=== PATIENT | female | born 1945 | race African-American/Black ===

== ENCOUNTER → 2017-03-29 | Outpatient (CLI) | payer OTHER | LOC: FIMAGING 09:24 | PROVIDERS: ATTEND Family Medicine | DX: M85.80 Other specified disorders of bone density and structure, unspecified site (principal); E55.9 Vitamin D deficiency, unspecified; I10 Essential (primary) hypertension; M25.50 Pain in unspecified joint; E78.5 Hyperlipidemia, unspecified ==

== ENCOUNTER 2017-04-13 10:12 | Day surgery (SDC) | payer OTHER ==
[2017-04-13] MEDS ORDERED: LIDOCAINE 1% 2 ML INJ ONE (10:41)
--- NOTE | 2017-04-13 10:52 | PDGENHP ---
History & Physical Chief Complaint: + Cologard Relevant Physical Exam: GEN: NAD. Cardiac: RRR. Lungs: CTA B. Abd: Soft, nt, nd
[2017-04-13] MEDS ORDERED: LR 1,000 ML IV SCH (11:00)
--- NOTE | 2017-04-13 11:02 | PDANEPAE ---
ANE History of Present Illness patient is here for colonoscopy ANE Past Medical History - Cardiovascular History Hx Hypertension: Yes Hx Arrhythmias: No Hx Chest Pain: No Hx Coronary Artery / Peripheral Vascular Disease: No Hx CHF / Valvular Disease: No Hx Palpitations: No Cardiovascular History Comment: hyperlipidemia - Pulmonary History Hx COPD: No Hx Asthma/Reactive Airway Disease: No Hx Recent Upper Respiratory Infection: No Hx Oxygen in Use at Home: No Hx Sleep Apnea: No Sleep Apnea Screening Result - Last Documented: Negative - Neurologic History Hx Cerebrovascular Accident: No Hx Seizures: No Hx Dementia: No - Endocrine History Hx Diabetes: No Obesity: moderate - Renal History Hx Renal Disorders: No - Liver History Hx Hepatic Disorders: No - Neurological & Psychiatric Hx Hx Neurological and Psychiatric Disorders: No - Cancer History Hx Cancer: No - Congenital Disorder History Hx Congenital Disorders: No - GI History GERD: no Hx Gastrointestinal Disorders: No - Other Health History Other Health History: wears glasses. oseoarthritis - Chronic Pain History Chronic Pain: No - Surgical History Prior Surgeries: x2 1970, 1975. left carpal tunnel release 2010. inguinal hernia repair 1970. tonsillectomy 1955 ANE Review of Systems - Exercise capacity Exercise capacity: >=4 METS METS (RN): 4 METS ANE Patient History - Allergies Allergies/Adverse Reactions: No Known Allergies Allergy (Verified 03/16/17 14:07) - Home Medications Home medications: home medication list seen and reviewed Home Medications: Losartan/Hydrochlorothiazide 03/16/17 [Last Taken Unknown] - NPO status NPO Status: no food or drink >8 hours - Anes Hx Anes Hx: no prior problems - Smoking Hx Smoking Status: Never smoked - Family Anes Hx Family Hx Anesthesia Complications: none ANE Labs/Vital Signs - Vital Signs Height: 163.83 cm Weight: 83.461 kg ANE Physical Exam - Airway Neck exam: FROM Mallampati Score: Class 2 Mouth exam: normal dental/mouth exam - Pulmonary Pulmonary: no respiratory distress - Cardiovascular Cardiovascular: regular rate and rhythym - ASA Status ASA Status: II ANE Anesthesia Plan Anesthesia Plan: GA with mask (discussed risks and benefits of GA with propofol. Pt agrees and wishes to continue. )
[2017-04-13] MEDS ORDERED: PROPOFOL/EMULSION 500 MG/50 ML BOTTLE IV ONE (11:04)
[2017-04-13] MEDS ORDERED: NALOXONE HCL 0.4 MG/ML INJ IVP PRN (11:38)
[2017-04-13] MEDS ORDERED: ONDANSETRON 4 MG/2 ML VIAL IVP PRN (11:38)
[2017-04-13] MEDS ORDERED: PROPOFOL 200 MG/20 ML VIAL ONE (11:49)
--- NOTE | 2017-04-13 11:56 | POSTOPPROG ---
Post Op Note Date of Operation: 04/13/17 Surgeon: Melvin Villalobos Pre-op Diagnosis: + Cologard Post-op Diagnosis: Colon polyps Indication: + Cologard Procedure: Colonoscopy with bx, snare, injection Findings: 4 polyps s/p removal. Largest in rectum piecemeal 12mm. Inf/Abcess present in the surg proc area at time of surgery?: No
--- NOTE | 2017-04-13 13:18 | GOP ---
[f rep st] OPERATIVE REPORT DATE OF OPERATION: SURGEON: Melvin Villalobos MD ANESTHESIA: Monitored anesthesia care. PREOPERATIVE DIAGNOSIS: Positive Cologuard. POSTOPERATIVE DIAGNOSIS: Colon polyps, status post removal. PROCEDURE PERFORMED: 1. Colonoscopy with biopsy. 2. Colonoscopy with snare. 3. Colonoscopy with injection. FINDINGS: ESTIMATED BLOOD LOSS: Minimal. INDICATIONS: The patient is a 71-year-old female who had a positive Cologuard test. She is here fo r a colonoscopy for further evaluation. The risks and benefits of the procedure were discussed with the patient. Consent obtained. Risks include, but not limited to, bleeding, perforation, and oz tion. The patient is ASA class 2. DESCRIPTION OF PROCEDURE: The adult colonoscope was advanced to the cecum. Two 3 mm polyps were fo und in the cecum, which were removed using cold snare polypectomy and retrieved for pathology. The ileocecal valve, appendiceal orifice, ascending colon, hepatic flexure, transverse colon, splenic fl exure appeared normal. A 2 mm polyp was noted in the descending colon and was removed using cold bi opsy forceps, sent off for pathology. The remaining descending colon and sigmoid colon were normal. In the rectum, there was a 12 mm flat polyp, which was removed using a large hexagonal snare in pi ecemeal fashion. The polyp was retrieved for pathology. A single hemoclip was placed over the site to close the defect. Finally, a tattoo was placed at this site using a Dennis Damian injection needle to eunice the site of piecemeal polypectomy. Retroflexed views of the rectum were normal. COMPLICATIONS: None. BIOPSIES TAKEN: Yes. IMPRESSION: Four colon polyps status post removal. Large polyps removed in piecemeal fashion. RECOMMENDATIONS: 1. Discharge to home with escort. 2. Advance diet as tolerated. 3. Repeat colonoscopy in 6 months for surveillance purposes given piecemeal polypectomy. Thank you for allowing me to participate in the care of your patient. Please do not hesitate to shavonne l with questions. /[id number]/MODL
--- NOTE | 2017-04-13 13:28 | POSTANESTH ---
Post Anesthetic Evaluation Cardiovascular Status: Normal, Stable Respiratory Status: Normal, Stable Level of Consciousness/Mental Status: Mildly Sleepy, Arousable Pain Control: Adequate, Prn Tx Ordered Nausea/Vomiting Control: Adequate, Prn Tx Ordered Complications Possibly Related to Anesthesia: None Noted
[2017-04-13 13:30] VITALS: BP 156/58; PULSE 41; RESP 16; TEMP 97.9; O2SAT 98
== END 2017-04-13 13:15 | disposition home or self-care (01) ==
LOC: FSGY 10:12
PROVIDERS: ATTEND Internal Medicine Gastroenterology
PROC: 0DBH8ZX Excision of Cecum, Via Natural or Artificial Opening Endoscopic, Diagnostic (ICD-10-PCS; principal; 2017-04-13 11:30)
PROC: 0DBE8ZZ Excision of Large Intestine, Via Natural or Artificial Opening Endoscopic (ICD-10-PCS; principal; 2017-04-13 11:30)
PROC: 0DBP8ZX Excision of Rectum, Via Natural or Artificial Opening Endoscopic, Diagnostic (ICD-10-PCS; principal; 2017-04-13 11:30)
DX: Z12.11 Encounter for screening for malignant neoplasm of colon (principal); D12.0 Benign neoplasm of cecum; D12.4 Benign neoplasm of descending colon; D12.8 Benign neoplasm of rectum
CPT/HCPCS: J2704

== ENCOUNTER → 2017-08-03 | Outpatient (CLI) | payer OTHER | LOC: FIMAGING 14:44 | PROVIDERS: ATTEND Family Medicine | DX: N63.10 Unspecified lump in the right breast, unspecified quadrant (principal) | CPT/HCPCS: 76641; G0204 ==

== ENCOUNTER → 2017-08-11 | Outpatient (CLI) | payer OTHER ==
[~2017-08-11] MED LIST: BUPIVACAINE 0.5% 10 ML SDV ONE; LIDOCAINE 1% 300 MG/30 ML SDV ONE; THROMBIN (BOVINE) 5,000 UNIT VIAL TP ONE
[2017-08-17 15:19] LABS: FIXED IN 10%FORM 6-72HR Yes; FIXED IN 10%FORM W/IN 1 HR Yes
== END ==
LOC: FIMAGING 07:13
PROVIDERS: ATTEND Family Medicine
DX: C50.911 Malignant neoplasm of unspecified site of right female breast (principal)

== ENCOUNTER → 2017-09-21 | Outpatient (CLI) | payer OTHER ==
[~2017-09-21] MED LIST changes: -BUPIVACAINE 0.5% 10 ML SDV ONE; +GADOBUTROL 10 ML VIAL IVP ONE; -LIDOCAINE 1% 300 MG/30 ML SDV ONE; -THROMBIN (BOVINE) 5,000 UNIT VIAL TP ONE
== END ==
LOC: FIMAGING 08:07
PROVIDERS: ATTEND Surgery
DX: C50.411 Malignant neoplasm of upper-outer quadrant of right female breast (principal); R59.9 Enlarged lymph nodes, unspecified; R92.8 Other abnormal and inconclusive findings on diagnostic imaging of breast
CPT/HCPCS: 0159T; A9585; C8908

== ENCOUNTER 2017-12-06 12:09 | Day surgery (SDC) | payer OTHER ==
[2017-12-06] MEDS ORDERED: DIAZEPAM 5 MG TAB PO ONE (12:12)
[2017-12-06] MEDS ORDERED: NS 1,000 ML IV ONE (12:12)
[2017-12-06] MEDS ORDERED: diphenhydrAMINE 25 MG CAP PO ONE ×2 (12:12→12:49)
[2017-12-06] MEDS ORDERED: ASPIRIN EC 325 MG TAB PO ONE ×2 (12:12→12:49)
[2017-12-06] MEDS ORDERED: FAMOTIDINE 20 MG TAB PO ONE (12:12)
--- NOTE | 2017-12-06 12:44 | CPEKG ---
Heart Rate: 74 RR Interval: 811 P-R Interval: 176 QRSD Interval: 100 QT Interval: 408 QTC Interval: 453 P [place]: 28 QRS [place]: -58 T Wave [place]: 62 EKG Severity - ABNORMAL ECG - EKG Impression: SINUS RHYTHM EKG Impression: LEFT ANTERIOR FASCICULAR BLOCK EKG Impression: LEFT VENTRICULAR HYPERTROPHY EKG Impression: CONSIDER ANTERIOR INFARCT EKG Impression: SIMILAR TO 2010 ECG Electronically Signed By: Dary Mercado 06-Dec-2017 19:27:27
[2017-12-06] MEDS ORDERED: FAMOTIDINE 20 MG TAB ONE (12:49)
[2017-12-06 12:56] LABS: PLATELET COUNT 291 10^3/uL (150-400)
[2017-12-06 13:11] LABS: INR 0.96 (0.83-1.16)
[2017-12-06] MEDS ORDERED: LIDOCAINE 1% 300 MG/30 ML SDV ONE (13:25)
[2017-12-06] MEDS ORDERED: fentaNYL 100 MCG/2 ML INJ ONE (13:25)
[2017-12-06] MEDS ORDERED: IOPAMIDOL (ISOVUE-370) 150 ML BTL IV ONE (13:26)
[2017-12-06] MEDS ORDERED: VERAPAMIL 5 MG/2 ML VIAL ONE (13:37)
[2017-12-06] MEDS ORDERED: MIDAZOLAM 2 MG/2 ML VIAL ONE (13:37)
[2017-12-06] MEDS ORDERED: HEPARIN 10,000 UNIT/10 ML MDV (1,000 UNIT/ML) ONE (13:41)
--- NOTE | 2017-12-06 13:47 | PDPROPOC ---
Sedation Plan of Care Sedation Plan of Care: vital signs stable, mental status noted, patient educated of risks, benefits, alternatives, patient can tolerate sedation ASA Classification: ASA 1 Planned drugs: fentanyl, midazolam Mallampati Score: Class 1 Mallampati Reference Image: Patient passed 3-3-2 rule?: Yes
--- NOTE | 2017-12-06 13:47 | PDHPUP ---
History & Physical Update H&P update statement: This history and physical update is based on an assessment of the patient which was completed after admission or registration (within 24 hours), but prior to the surgery/procedure. H&P update: H&P reviewed & patient examined, no change in patient's condition since H&P completed
--- NOTE | 2017-12-06 14:47 | PDDXCAT ---
Diagnostic Cath Note - . Date: 12/06/17 Skip Miner: White Indication: other ([place] Cardiovascular Society class 2 anginal equivalent with dyspnea on exertion and an intermediate risk stress test. Preoperative assessment for planned bilateral mastectomy.) - Procedure Access: right wrist Procedure: left heart catheterization, coronary angiography, left ventriculogram - Materials Left Heart Cath size: 4F Left Heart Cath materials: JL3.5, JR4.0, pigtail - Findings-Left Heart Catheterization LM: Large caliber vessel. Appropriate bifurcation into the left anterior descending and circumflex distributions. Angiographically free of disease. LAD: Large caliber vessel which approaches but does not traverse the apex. 3 diagonal branches identified. Angiographically free of disease. LCX: Large caliber vessel in the proximal segment. Becomes diminutive after the origin of the 2nd obtuse marginal branch. Angiographically free of disease. RCA: Large caliber vessel. Dominant. The PDA and a moderate caliber posterolateral cascade are noted. Angiographically free of disease LVEF: 60-65%. Normal wall motion. No significant mitral regurgitation. Complications: None. Estimated blood loss: <50ml Closure method: TR Band Assessment: Angiographically normal epicardial coronary arteries in a right- dominant system. Normal left ventricular systolic function with an ejection fraction of 60-65%. No identified significant valvular heart disease. Normal visualized portions of the thoracic aorta. Plan: No further medical therapy indicated. Low perioperative cardiovascular risk for planned bilateral mastectomy. Intervention: None.
[2017-12-06] MEDS ORDERED: HYDROCODONE/APAP 5/325 TAB PO PRN (15:14)
[2017-12-06] MEDS ORDERED: ONDANSETRON 4 MG/2 ML VIAL IVP PRN (15:14)
[2017-12-06] MEDS ORDERED: NITROGLYCERIN 0.4 MG BTL SL PRN (15:14)
[2017-12-06] MEDS ORDERED: OXYCODONE/APAP 5/325 TAB PO PRN (15:14)
[2017-12-06] MEDS ORDERED: ATROPINE SULFATE 1 MG/10 ML SYR IVP PRN (15:14)
== END 2017-12-06 17:20 | disposition home or self-care (01) ==
LOC: FCATH 12:09
PROVIDERS: ATTEND Internal Medicine Cardiovascular Disease
DX: R06.02 Shortness of breath (principal); R53.83 Other fatigue; R94.31 Abnormal electrocardiogram [ECG] [EKG]; I10 Essential (primary) hypertension; R00.1 Bradycardia, unspecified; E78.5 Hyperlipidemia, unspecified; Z85.3 Personal history of malignant neoplasm of breast
CPT/HCPCS: J1644; J2250; J3010; Q9967

== ENCOUNTER 2017-12-10 10:00 | Observation (INO) | payer OTHER ==
--- NOTE | 2017-12-13 15:29 | GHP ---
[f rep st] PREOP HISTORY AND PHYSICAL DATE OF ADMISSION: 12/14/2017 DATE OF SURGERY: 12/14/2017. CHIEF COMPLAINT: Right breast cancer. HISTORY OF PRESENT ILLNESS: The patient is a 72-year-old woman who was originally diagnosed with rig ht breast cancer in July of 2017. She has deferred treatment until this time. She had an abnorm al mammogram and ultrasound on 08/03/2017 for a palpable right breast mass at which time measured 2.8 x 2.7 x 2.7 cm. She had a biopsy performed on 08/12/2017, which revealed invasive ductal carcinoma. She had an enlarged right axillary lymph node, which was biopsied and showed to being negative, est rogen and progesterone positive, HER-2/harsh negative KI-67 15%. She has been aware of the mass for 2- 3 years. She is G2, P2. She was 27 years old at the of her 1st child. She went through menop ause at 55 years old. She used HRT for 3 years and discontinued. She had a breast MRI which showed a large spiculated breast mass in the inferior aspect of the right breast. There is contiguous extension into the skin over the mass. There is a satellite focus of ma lignancy anterior to the primary lesion. There was also ductal enhancement in the inferior left cassie st at the 5 o'clock position, which is suspicious for DCIS. She has suspicious right axillary lympha denopathy. PAST MEDICAL HISTORY: Bradycardia, Gilbert syndrome, hyperlipidemia, hypertension, osteopenia, vitam in D deficiency. PAST SURGICAL HISTORY: , left carpal tunnel release, inguinal hernia repair, tonsillectomy. ALLERGIES: HITESH inhibitors. FAMILY HISTORY: Her mother had a stroke, hypertension, macular degeneration, osteoporosis, and rheum atoid arthritis. Maternal grandmother with type 2 diabetes. Brother with heart murmur. Father with throat cancer. SOCIAL HISTORY: She is . She denies tobacco, alcohol or recreational drug use. REVIEW OF SYSTEMS: A 10-point review of systems is negative aside from HPI. PHYSICAL EXAMINATION: GENERAL: Well-developed, well-nourished woman in no acute distress. HEENT: Normocephalic, atraumatic. No hearing deficits. Pupils are equal and round. No scleral icterus. M ucous membranes are moist. NECK: Trachea midline. RESPIRATORY: Clear to auscultation bilaterally. No increased work of breathing. CARDIOVASCULAR: Regular rate and rhythm. No peripheral edema. L YMPH: Palpable right axillary lymphadenopathy. No cervical, supraclavicular or left axillary lympha denopathy. BREASTS: Large mass in right lower outer quadrant. No overlying skin changes. MUSCULOS KELETAL: Normal gait. Normal nails. PSYCHIATRIC: Mood and affect normal. NEUROLOGIC: Grossly in tact. IMPRESSION AND PLAN: A 72-year-old woman with right breast invasive ductal carcinoma and a suspiciou s lesion on the left. She has elected to proceed with bilateral mastectomy without reconstruction. We discussed the risks of surgery, including but not limited to heart attack, stroke, blood clots or . We discussed risk of infection, bleeding, damage to surrounding structures, lymphedema, or ne ed for additional procedures. We will also perform sentinel lymph node biopsy and likely right axill koffi lymph node dissection. This will be an overnight observation, [facility] She will have drains after the surgery. Care of this was discussed. She had her questions answe red to her satisfaction. She was additionally seen by Dr. Alysia Umana who agrees with the above impression and plan. /[id number]/MODL
[2017-12-14] MEDS ORDERED: ceFAZolin 2 GM/SWFI 2 GM/20 ML SYR IVP ONE ×2 (07:36→07:45)
[2017-12-14] MEDS ORDERED: LR 1,000 ML IV ONE (07:38)
--- NOTE | 2017-12-14 08:19 | PDHPUP ---
History & Physical Update H&P update statement: This history and physical update is based on an assessment of the patient which was completed after admission or registration (within 24 hours), but prior to the surgery/procedure. H&P update: H&P reviewed & patient examined, changes noted H&P changes: Pt had periopertive cardiac workup - low cardiac risk. Increasing pain in right breast since last office visit
[2017-12-14] MEDS ORDERED: THROMBIN (BOVINE) 20,000 UNIT SPRAY TP ONE (09:31)
[2017-12-14] MEDS ORDERED: BUPIVACAINE 0.5% 30 ML SDV ONE (09:32)
[2017-12-14] MEDS ORDERED: fentaNYL 100 MCG/2 ML INJ ONE ×2 (09:39)
[2017-12-14] MEDS ORDERED: PROPOFOL 200 MG/20 ML VIAL ONE (09:40)
[2017-12-14] MEDS ORDERED: KETOROLAC 30 MG/1 ML SDV ONE (09:40)
[2017-12-14] MEDS ORDERED: LIDOCAINE 2% 5 ML SDV ONE (09:40)
[2017-12-14] MEDS ORDERED: DEXAMETHASONE 4 MG/ML VIAL ONE (09:40)
--- NOTE | 2017-12-14 09:47 | PDANEPAE ---
ANE History of Present Illness bilateral mastectomy ANE Past Medical History - Cardiovascular History Hx Hypertension: Yes Hx Arrhythmias: No Hx Chest Pain: No Hx Coronary Artery / Peripheral Vascular Disease: No Hx CHF / Valvular Disease: No Hx Palpitations: No Cardiovascular History Comment: BRADYCARDIA HAS BEEN RECOMMENDED SHE HAS A. A PACEMAKER. hyperlipidemia - Pulmonary History Hx COPD: No Hx Asthma/Reactive Airway Disease: No Hx Recent Upper Respiratory Infection: No Hx Oxygen in Use at Home: No Hx Sleep Apnea: No Sleep Apnea Screening Result - Last Documented: Negative Pulmonary History Comment: URI/FLU 11/06/2017 TREATED WITH. ANTIBIOTICS FOR 10 DAYS. SLIGHT NON PROD RESIDUAL COUGH - Neurologic History Hx Cerebrovascular Accident: No Hx Seizures: No Hx Dementia: No - Endocrine History Hx Diabetes: No - Renal History Hx Renal Disorders: No - Liver History Hx Hepatic Disorders: No - Neurological & Psychiatric Hx Hx Neurological and Psychiatric Disorders: No - Cancer History Hx Cancer: Yes Cancer History Comment: DX WITH BREAST 07/2018 - Congenital Disorder History Hx Congenital Disorders: No - GI History Hx Gastrointestinal Disorders: No - Other Health History Other Health History: oseoarthritis - Chronic Pain History Chronic Pain: No - Surgical History Prior Surgeries: COLONOSCOPY 04/13/17. left carpal tunnel release 2010. inguinal hernia repair 1970. tonsillectomy 1955 ANE Review of Systems Review of systems is: negative Review of Systems: - Exercise capacity METS (RN): 2 METS ANE Patient History - Allergies Allergies/Adverse Reactions: No Known Allergies Allergy (Verified 12/13/17 17:13) - Home Medications Home medications: home medication list seen and reviewed Home Medications: Losartan/Hctz 50/12.5 [Hyzaar 50/12.5MG (*)] 1 tab PO BID 03/16/17 [Last Taken 12/13/17 15:00] Ascorbic Acid [Vitamin C 500 mg (*)] 500 mg PO Q3D 11/23/17 [Last Taken 08:00] Cholecalciferol Vit D3 [Vitamin D3 (*)] 1,000 units PO Q3D 11/23/17 [Last Taken 12/03/17 08:00] Cyanocobalamin [Vitamin B12 (*)] 1,000 mcg PO Q3D 11/23/17 [Last Taken 12/03/17 08:00] Ibuprofen [Motrin (*)] 200 mg PO BID 11/23/17 [Last Taken 12/06/17] Homer-3 Fatty Acids [Fish Oil 1000 mg (*)] 1,000 mg PO Q3D 11/23/17 [Last Taken 12/06/17] Benzonatate [Tessalon Pearles (RX)] 100 mg PO TID PRN 12/06/17 [Last Taken 11/23] Herbals/Supplements -Info Only 1 ea PO DAILY 12/06/17 [Last Taken 12/03/17 08:00 ] Aspirin EC [Aspirin EC 81 mg (*)] 81 mg PO DAILY 12/13/17 [Last Taken 12/06/17] Guaifenesin BID 12/14/17 [Last Taken 12/13/17 20:00] Tylenol Extra Strength 12/14/17 [Last Taken 12/13/17] - NPO status NPO Since - Liquids (Date): 12/13/17 NPO Since - Liquids (Time): 20:00 NPO Since - Solids (Date): 12/13/17 NPO Since - Solids (Time): 21:30 - Smoking Hx Smoking Status: Never smoked - Family Anes Hx Family Hx Anesthesia Complications: none ANE Labs/Vital Signs - Vital Signs Blood Pressure: 139/88 Heart Rate: 82 Respiratory Rate: 16 O2 Sat (%): 93 Height: 163.83 cm Weight: 78.925 kg ANE Physical Exam - Airway Neck exam: FROM Mallampati Score: Class 2 Mouth exam: normal dental/mouth exam - Pulmonary Pulmonary: no respiratory distress - Cardiovascular Cardiovascular: regular rate and rhythym - ASA Status ASA Status: III ANE Anesthesia Plan Anesthesia Plan: GA w LMA
[2017-12-14] MEDS ORDERED: HYDROmorphONE/DILAUDID 2 MG/ML INJ ONE (10:28)
[2017-12-14] MEDS ORDERED: ONDANSETRON 4 MG/2 ML VIAL ONE ×2 (10:40→13:13)
--- NOTE | 2017-12-14 11:11 | POSTANESTH ---
Post Anesthetic Evaluation Cardiovascular Status: Normal, Stable Respiratory Status: Normal, Stable Level of Consciousness/Mental Status: Can Participate in Eval Pain Control: Adequate, Prn Tx Ordered Nausea/Vomiting Control: Adequate, Prn Tx Ordered Complications Possibly Related to Anesthesia: None Noted
[2017-12-14] MEDS ORDERED: oxyCODONE IR 5 MG TAB PO PRN (11:37)
[2017-12-14] MEDS ORDERED: HYDROCODONE/APAP 5/325 TAB PO PRN (11:37)
[2017-12-14] MEDS ORDERED: ALBUTEROL 3 ML DEYVIAL IH PRN (11:37)
[2017-12-14] MEDS ORDERED: PROMETHAZINE HCL 25 MG/ML INJ IVP PRN (11:37)
[2017-12-14] MEDS ORDERED: fentaNYL 100 MCG/2 ML INJ IVP PRN (11:37)
[2017-12-14] MEDS ORDERED: ACETAMINOPHEN 500 MG TAB PO PRN (11:37)
[2017-12-14] MEDS ORDERED: HYDROmorphONE/DILAUDID 1 MG/ML INJ IVP PRN (11:37)
[2017-12-14] MEDS ORDERED: ONDANSETRON 4 MG/2 ML VIAL IVP PRN ×2 (11:37→12:52)
[2017-12-14] MEDS ORDERED: LR 500 ML IV PRN (11:37)
[2017-12-14] MEDS ORDERED: NALOXONE HCL 0.4 MG/ML INJ IVP PRN (11:37)
--- NOTE | 2017-12-14 12:50 | POSTOPPROG ---
Post Op Note Date of Operation: 12/14/17 Surgeon: Alysia Umana Silver Steward: katharina Anesthesia: GET(General Endotracheal) Pre-op Diagnosis: R breast ca Post-op Diagnosis: same Indication: 71yo F with R breast invasive ductal ca, suspicious L breast lesions Procedure: B mastectomy with L sentinel node bx, right ax dissection Findings: neg L SLN, large firm palpable right axillary nodes Inf/Abcess present in the surg proc area at time of surgery?: No EBL: 50-100 Drains: Popeye Reddy (x4)
[2017-12-14] MEDS ORDERED: IBUPROFEN 800 MG TAB PO PRN (12:52)
[2017-12-14] MEDS ORDERED: diphenhydrAMINE 25 MG CAP PO PRN (12:52)
[2017-12-14] MEDS ORDERED: ACETAMINOPHEN 325 MG TAB PO PRN (12:52)
[2017-12-14] MEDS ORDERED: BENZONATATE 100 MG CAP PO PRN (12:54)
[2017-12-14] MEDS ORDERED: PROMETHAZINE HCL 25 MG/ML INJ ONE (13:31)
[2017-12-14] MEDS ORDERED: LACTULOSE 20 GM/30 ML UDCUP PO PRN (15:38)
[2017-12-14] MEDS ORDERED: POLYETHYLENE GLYCOL 3350 17 GM PKT PO PRN (15:38)
[2017-12-14] MEDS ORDERED: BISACODYL 10 MG SUPP PR PRN (15:38)
[2017-12-14] MEDS ORDERED: MAGNESIUM HYDROXIDE 30 ML UDCUP PO PRN (15:38)
[2017-12-14] MEDS: IBUPROFEN 600 MG TAB PO PRN (19:21)
[2017-12-14] MEDS: LOSARTAN/HCTZ 50/12.5 1 TAB PO SCH (20:27)
[2017-12-14] MEDS: SENNOSIDES/DOCUSATE SODIUM TAB PO SCH (20:28)
[2017-12-15] MEDS: SENNOSIDES/DOCUSATE SODIUM TAB PO SCH ×2 (09:07→21:15)
[2017-12-15] MEDS: LOSARTAN/HCTZ 50/12.5 1 TAB PO SCH ×2 (09:07→20:58)
--- NOTE | 2017-12-15 12:21 | ASMTCMCOM ---
CM Note CM Note Notes: Pt admitted for bilateral mastectomy. Spoke with pt and her son. She will have no DC needs. CM available if needs change. Date Signed: 12/15/2017 12:21 PM Electronically Signed By:Nita Spain LCSW
[2017-12-15] MEDS: IBUPROFEN 600 MG TAB PO PRN ×2 (12:25→20:58)
--- NOTE | 2017-12-15 15:05 | SOAPPROG ---
SOAP Progress Note Assessment/Plan: Assessment: POD # 1 s/p bilateral mastectomy, L SLN and R axillary dissection MAY do blood draws and BP on LEFT NO blood draws, NO BP on right Continue education on CHAI drain care Likely home tomorrow S: Able to more arms more, working on IS O: Dressings cdi, CHAI with serosang fluid Sitting in chair, appears well, son at bedside Plan: 12/15/17 15:04 12/15/17 15:08 Objective: Vital Signs Temp Pulse Resp BP Pulse Ox 37.2 C 79 17 189/106 H 97 12/15/17 12:44 12/15/17 12:44 12/15/17 12:44 12/15/17 12:44 12/15/17 12:44 12/14/17 12/15/17 12/16/17 05:59 05:59 05:59 Intake Total 1380 Output Total 525 300 Balance 855 -300 ICD10 Worksheet Patient Problems: Problems Problem Status Onset Breast cancer Acute - ICD10 Problem Qualifiers (1) Breast cancer Qualifiers: Breast location: lower inner quadrant of breast Estrogen receptor status: positive Patient sex: female Laterality: right Qualified Code(s): C50.311 - Malignant neoplasm of lower-inner quadrant of right female breast; Z17.0 - Estrogen receptor positive status [ER+]; Z17.0 - Estrogen receptor positive status [ER+]
[2017-12-15] MEDS: HYDROCODONE/APAP 5/325 TAB PO PRN (22:34)
[2017-12-16] MEDS: HYDROCODONE/APAP 5/325 TAB PO PRN (04:03)
[2017-12-16] MEDS: IBUPROFEN 600 MG TAB PO PRN ×2 (05:04→16:54)
[2017-12-16] MEDS: ONDANSETRON DISINTEGRATING 4 MG TAB PO PRN (09:25)
[2017-12-16] MEDS: LOSARTAN/HCTZ 50/12.5 1 TAB PO SCH ×2 (11:23→22:23)
[2017-12-16] MEDS: SENNOSIDES/DOCUSATE SODIUM TAB PO SCH ×2 (11:24→22:26)
[2017-12-16] MEDS: traMADol 50 MG TAB PO PRN ×2 (16:50→22:39)
--- NOTE | 2017-12-16 20:47 | SOAPPROG ---
SOAP Progress Note Assessment/Plan: Assessment: POD # 2 s/p bilateral mastectomy, L SLN and R axillary dissection MAY do blood draws and BP on LEFT NO blood draws, NO BP on right Continue education on CHAI drain care Very nauseated this am. Has not slept. Likely home tomorrow S: Finally had multiple bowel movements. Nauseated after [place]. No emesis. O: Dressings cdi, CHAI with serosang fluid Lying in bed, does not look like she is feeling well. Plan: 12/15/17 15:04 12/15/17 15:08 12/16/17 20:45 Objective: Vital Signs Temp Pulse Resp BP Pulse Ox 36.8 C 57 L 17 92/42 L 94 12/16/17 20:00 12/16/17 20:00 12/16/17 20:00 12/16/17 20:00 12/16/17 20:00 12/15/17 12/16/17 12/17/17 05:59 05:59 05:59 Intake Total 4799 371 2997 Output Total 525 725 Balance 855 -425 1000 ICD10 Worksheet Patient Problems: Problems Problem Status Onset Breast cancer Acute - ICD10 Problem Qualifiers (1) Breast cancer Qualifiers: Breast location: lower inner quadrant of breast Estrogen receptor status: positive Patient sex: female Laterality: right Qualified Code(s): C50.311 - Malignant neoplasm of lower-inner quadrant of right female breast; Z17.0 - Estrogen receptor positive status [ER+]; Z17.0 - Estrogen receptor positive status [ER+]
[2017-12-17] MEDS: IBUPROFEN 600 MG TAB PO PRN ×2 (01:08→09:13)
[2017-12-17 08:41] VITALS: BP 123/61
[2017-12-17] MEDS: SENNOSIDES/DOCUSATE SODIUM TAB PO SCH (09:09)
[2017-12-17] MEDS: LOSARTAN/HCTZ 50/12.5 1 TAB PO SCH (09:10)
[2017-12-17] MEDS: ONDANSETRON DISINTEGRATING 4 MG TAB PO PRN (09:16)
[2017-12-17] MEDS: traMADol 50 MG TAB PO PRN (09:16)
--- NOTE | 2017-12-17 11:32 | SOAPPROG ---
SOAP Progress Note Assessment/Plan: Assessment/Plan: POD #3 s/p bilateral mastectomy, L SLN and R axillary dissection Path pending Pain controlled with Tramadol Nausea controlled with Zofran CHAI drains with serosang output Dressings intact MAY do blood draws and BP on LEFT NO blood draws, NO BP on right Dispo: home today. FU 1 week. Will remove drains when <20cc out x 2 consecutive days Objective: Vital Signs Temp Pulse Resp BP Pulse Ox 36.8 C 63 16 123/61 H 92 12/17/17 08:35 12/17/17 08:35 12/17/17 08:35 12/17/17 09:10 12/17/17 08:35 12/16/17 12/17/17 12/18/17 05:59 05:59 05:59 Intake Total 300 1450 Output Total 725 105 25 Balance -425 1345 -25 ICD10 Worksheet Patient Problems: Problems Problem Status Onset Breast cancer Acute
--- NOTE | 2017-12-17 11:45 | GDS ---
[f rep st] DISCHARGE SUMMARY ADMITTING DIAGNOSIS: Right breast cancer. SECONDARY DIAGNOSES: Hypertension, hyperlipidemia. REASON FOR HOSPITALIZATION: Comfort is a 72-year-old woman who was diagnosed with right breast cancer in July of 2017. She deferred treatment until this time. She was admitted for surgical interve ntion, pain control, and observation. HOSPITAL COURSE: She was taken to the operating room on 12/14/[address] Alysia Umana for bilateral mastectomy, left sentinel lymph node biopsy and right axillary dissection. At the time of surgery, h er final pathology is pending. She had 4 CHAI drains placed at the time of surgery and no reconstructi on. She is very sensitive to narcotic pain medication. She ultimately tolerated Ultram without any difficulty. Her nausea was controlled with Zofran. She was having serosanguineous drainage from her CHAI drain. Pain was controlled with oral pain medication, tolerating regular diet and ambulating ind ependently by postoperative day #3. CONDITION: Being discharged home in stable condition. DISCHARGE MEDICATIONS: She was sent home with prescription for Zofran and tramadol. Instructed to r esume home medications, please see MAR for further detail. DISCHARGE INSTRUCTIONS AND FOLLOWUP: She will follow up with Candis Yanez PA-C or Dr. Alysia Umana in 1 week. We will remove her CHAI drains when less than 20 cc out for 2 consecutive days. She may ch barrington the outer dressings as needed. She may shower. She understands to call with any worsening symp toms, questions or concerns. /[id number]/MODL
--- NOTE | 2017-12-17 12:45 | ASMTCMCOM ---
CM Note CM Note Notes: Pt to DC today with no DC needs. Date Signed: 12/17/2017 12:45 PM Electronically Signed By:Nita Spain LCSW
--- NOTE | 2017-12-17 12:47 | ASMTLACE ---
LACE Length of stay for Answers: 2 days current admission Acuity / Level of Answers: Yes Care: Did the patient have an inpatient admission? Comorbidities - select Answers: Any tumor (including all that apply lymphoma or leukemia) # of Emergency department Answers: 0 visits in the last 6 months Score: 7 Date Signed: 12/17/2017 12:46 PM Electronically Signed By:Nita Spain LCSW
--- NOTE | 2017-12-31 16:05 | GOP ---
[f rep st] OPERATIVE REPORT DATE OF OPERATION: 12/14/2017 SURGEON: Alysia Umana MD HEMP FIBER TAKER OFF: ELIZABETH Gifford ANESTHESIA: General. ANESTHESIOLOGIST: Dr. Rice PREOPERATIVE DIAGNOSIS: Right breast cancer. POSTOPERATIVE DIAGNOSIS: Right breast cancer. PROCEDURE PERFORMED: Bilateral mastectomy, left sentinel lymph node biopsy, right axillary dissection. FINDINGS: Negative left sentinel lymph node, large firm palpable mass and matted axillary nodes on the right. ESTIMATED BLOOD LOSS: 100 cc. INDICATIONS: The patient is a 72-year-old woman with known right breast invasive ductal carcinoma for quite some time. She elected to have bilateral mastectomy without reconstruction. DESCRIPTION OF PROCEDURE: Patient was brought into the operating room, placed supine on the table and general anesthesia was administered. Her bilateral breast, chest and axilla were prepped and draped in the usual sterile fashion. I made an incision over her left breast in an elliptical fashion. I created superior and inferior skin flaps. My dissection occurred to the clavicle, sternum, inframammary fold, and mid axillary line. I removed the breast including the pectoralis fascia. This was marked short superior, long lateral. I then was able to use the gamma probe. I broke into the axillary space to identify the left sentinel lymph node. I isolated this, dissected it and removed it. It was sent to Pathology for frozen. It returned negative. Hemostasis was achieved. A damp lap was placed in this cavity. Next, on the right side, I made an ellipse around the breast. I made superior and inferior skin flaps. Again, the dissection occurred to the clavicle, sternum, inframammary fold, and mid axillary line. The breast was removed from the pectoralis fascia. This was marked short superior, long lateral. I used the gamma probe and I palpated multiple large lymph nodes in her right axilla. I then performed an axillary dissection. I was able to visualize the axillary vein and keep it from harm. I also could identify the thoracodorsal nerve bundle and the long thoracic nerve and protect these from harm. The lymph nodes went underneath the pectoralis. I was able to excise the bulky nodes. I swept my hand in the cavity and did not feel any additional large nodes. Hemostasis was achieved. I placed 2 drains on each side of her chest for a total of 4 drains. Each were sewn in with 3-0 nylon. The mastectomy sites were closed with 3-0 Vicryl followed by 4-0 Monocryl. I had to do V and Y flaps on the lateral side on each side in order to remove excess tissue underneath the axilla. This was a complex wound closure. Mastisol, Steri- Strips, and sterile dressings were applied. She was awakened in the operating room, extubated, transferred to PACU in stable condition. DRAINS: Malu oswald. /[id number]/MODL MTDD
== END 2017-12-17 12:55 | disposition home or self-care (01) ==
LOC: F3E 12-14 07:14 → F1N 12-14 14:37
PROVIDERS: ADMIT Surgery; ATTEND Surgery
PROC: 07B60ZX Excision of Left Axillary Lymphatic, Open Approach, Diagnostic (ICD-10-PCS; principal; 2017-12-14 09:45)
PROC: 0HTV0ZZ Resection of Bilateral Breast, Open Approach (ICD-10-PCS; principal; 2017-12-14 09:45)
PROC: 07B50ZX Excision of Right Axillary Lymphatic, Open Approach, Diagnostic (ICD-10-PCS; principal; 2017-12-14 09:45)
DX: C50.311 Malignant neoplasm of lower-inner quadrant of right female breast (principal); C77.3 Secondary and unspecified malignant neoplasm of axilla and upper limb lymph nodes; I10 Essential (primary) hypertension; M85.89 Other specified disorders of bone density and structure, multiple sites; E78.5 Hyperlipidemia, unspecified; E80.4 Gilbert syndrome; E55.9 Vitamin D deficiency, unspecified; Z17.0 Estrogen receptor positive status [ER+]
CPT/HCPCS: 19303; 38500; 88307; 88309; 88331; 88342; G0378; J0690; J1100; J1170; J2405; J2550; J2704; J3010; J1885

== ENCOUNTER → 2017-12-14 | Outpatient (CLI) | payer OTHER | LOC: FIMAGING 07:09 | PROVIDERS: ATTEND Surgery | PROC: C71M1ZZ Planar Nuclear Medicine Imaging of Trunk Lymphatics using Technetium 99m (Tc-99m) (ICD-10-PCS; principal; 2017-12-14) | DX: C50.911 Malignant neoplasm of unspecified site of right female breast (principal) | CPT/HCPCS: 78195; A9520 ==

== ENCOUNTER → 2018-01-27 | Outpatient (CLI) | payer OTHER | LOC: FIMAGING 17:13 | PROVIDERS: ATTEND Internal Medicine Hematology & Oncology | DX: C79.51 Secondary malignant neoplasm of bone (principal); C50.919 Malignant neoplasm of unspecified site of unspecified female breast ==

== ENCOUNTER 2018-02-09 10:22 | Inpatient (IN) | payer OTHER ==
[2018-02-09] MEDS ORDERED: NS 1,000 ML IV ONE (10:33)
--- NOTE | 2018-02-09 10:38 | EDPHY ---
H & P Time Seen by Provider: 02/09/18 10:26 HPI/ROS: CHIEF COMPLAINT: Altered mental status HISTORY OF PRESENT ILLNESS: Patient is a 72-year-old female with a history of breast cancer with recent bilateral mastectomies as well as metastasis to bone in her chest, spine and hips. She is currently receiving radiation and chemotherapy with Dr. Marcelo Kimble. The patient's daughter states that she seemed somewhat confused and slow this morning compared to baseline. Once they got to their clinic appointment the patient became essentially nonverbal. She is only oriented times person. She does follow commands easily but slowly. Daughter denies recent fevers, no chest pain or shortness of breath. No nausea vomiting. No recent urinary symptoms. The patient's baseline incontinent and bradycardic. She denies pain. REVIEW OF SYSTEMS: Per family Constitutional: See HPI EENTM: denies: blurred vision, double vision, nose congestion Respiratory: denies: cough, shortness of breath Cardiac: denies: chest pain, irregular heart rate, lightheadedness, palpitations Gastrointestinal/Abdominal: denies: abdominal pain, diarrhea, nausea, vomiting, blood streaked stools Genitourinary: denies: dysuria, frequency, hematuria, pain Musculoskeletal: denies: joint pain, muscle pain Skin: denies: lesions, rash, jaundice, bruising Neurological: See HPI denies: headache, numbness, paresthesia, tingling, dizziness, weakness Hematologic/Lymphatic: denies: blood clots, easy bleeding, easy bruising Immunologic/allergic: denies: HIV/AIDS, transplant EXAM: GENERAL: Staring up at the gemma, well-nourished and in no acute distress. HEAD: Atraumatic, normocephalic. EYES: Pupils equal round and reactive to light, extraocular movements intact, sclera anicteric, conjunctiva are normal. ENT: TMs normal, nares patent, oropharynx clear without exudates. Moist mucous membranes. NECK: Normal range of motion, supple without lymphadenopathy or JVD. LUNGS: Breath sounds clear to auscultation bilaterally and equal. No wheezes rales or rhonchi. HEART: Bradycardic in the 40s, baseline according to family. Regular rate and rhythm without murmurs, rubs or gallops. ABDOMEN: Soft, nontender, normoactive bowel sounds. No guarding, no rebound. No masses appreciated. BACK: No CVA tenderness, no spinal tenderness, step-offs or deformities EXTREMITIES: Normal range of motion, no pitting or edema. No clubbing or cyanosis. NEUROLOGICAL: Cranial nerves II through XII grossly intact. No slurred speech but minimal speech, generalized weakness. 4/5 strength, normal movement in all extremities, normal sensation PSYCH: Oriented only times person, follows commands SKIN: Incisions clean dry and intact, Warm, dry, normal turgor, no visible rashes or lesions. Source: Patient, Family, RN/MD, EMS Exam Limitations: No limitations - Medical/Surgical History Hx Asthma: No Hx Chronic Respiratory Disease: No Hx Diabetes: No Hx Cardiac Disease: Yes Hx Renal Disease: No Hx Cirrhosis: No Hx Alcoholism: No Hx HIV/AIDS: No Hx Splenectomy or Spleen Trauma: No Other PMH: Exertional CP, HTN, osteopenia, vitamin D deficiency, chronic back pain, R breast CA dx 07/2017, CA-PNA, atrial flutter, urinary urgency, c- section x2 vertical incision, carpal tunnel release x2. - Family History Significant Family History: No pertinent family hx - Social History Smoking Status: Never smoked Alcohol Use: Sober Drug Use: None Constitutional: Initial Vital Signs Temperature (C) 36.7 C 02/09/18 10:22 Heart Rate 43 L 02/09/18 10:22 Respiratory Rate 18 02/09/18 10:22 Blood Pressure 149/77 H 02/09/18 10:22 O2 Sat (%) 96 02/09/18 10:22 O2 Delivery Mode Room Air Allergies/Adverse Reactions: No Known Allergies Allergy (Verified 02/09/18 10:49) Home Medications: Medication Instructions Recorded Dexamethasone [Decadron 4 MG (*)] 4 mg PO BID 02/09/18 Letrozole [Femara 2.5 mg (*)] 2.5 mg PO DAILY 02/09/18 Palbociclib [Ibrance] 125 mg PO HS 02/09/18 Medical Decision Making - Diagnostics EKG Interpretation: An EKG obtained and was read and documented in trace view. Please see trace view for full reading and report. Sinus rhythm, bradycardic more so than previous. T-wave inversions more pronounced than previous Imaging: Discussed imaging studies w/ train caller Radiologist ED Course/Re-evaluation: 11:55 p.m. Discussed the case with Marilu who accepted to the medical service. Will order MRI. No source of infection at this point. We will hold off antibiotics. Fluid bolus has been ordered. I suspect brain metastasis with the normotension but bradycardia Differential Diagnosis: Partial list of the Differential diagnosis considered include but were not limited to; symptomatic bradycardia, brain cancer, urinary tract infection, and although unlikely based on the history and physical exam, I also considered biliary disease, pneumonia. Critical Care Time: Critical care time spent by me, Dr. Brito exclusive with this patient was 45 minutes, exclusive of the PA time exclusive of procedures. The organ system that was at risk was cardiovascular and I gave diagnosis, testing, workup, admission to prevent worsening of the patient's condition - Data Points Laboratory Results: Laboratory Results 02/09/18 10:25 02/09/18 10:25 Medications Given: Calcium Carbonate (Tums) 500 mg PO TID PRN PRN Reason: Indigestion Stop: 08/08/18 20:47 Last Admin: 02/09/18 21:00 Dose: 500 mg Dexamethasone (Decadron) 4 mg PO BID YASMINE Stop: 08/08/18 20:59 Last Admin: 02/10/18 09:39 Dose: 4 mg Enoxaparin Sodium (Lovenox) 40 mg SC DAILY YASMINE Stop: 08/09/18 13:44 Last Admin: 02/10/18 14:25 Dose: 40 mg Ceftriaxone Sodium/Dextrose (Rocephin 1 Gm (Premix)) 50 mls @ 100 mls/hr IV DAILY YASMINE PRN Reason: Protocol Stop: 03/11/18 17:59 Last Admin: 02/10/18 09:39 Dose: 50 mls Letrozole (Femara) 2.5 mg PO DAILY YASMINE Stop: 08/09/18 08:59 Last Admin: 02/10/18 10:50 Dose: 2.5 mg Discontinued Medications Sodium Chloride (Ns) 1,000 mls @ 0 mls/hr IV ONCE ONE; Wide Open PRN Reason: Protocol Stop: 02/09/18 10:34 Last Admin: 02/09/18 11:48 Dose: 1,000 mls Sodium Chloride (Ns) 2,100 mls @ 4,200 mls/hr 30 ml/kg infuse over 30 min ( 2100 ml) IV EDNOW ONE PRN Reason: Protocol Stop: 02/09/18 12:04 Last Admin: 02/09/18 11:49 Dose: 2,100 mls Point of Care Test Results: Chemistry 02/09/18 11:23 POC Troponin I 0.01 ng/mL ng/mL (0.00-0.08) Departure - Departure Disposition: [facility] Inpatient Acute Clinical Impression: Bradycardia Altered mental status Qualifiers: Altered mental status type: stupor Qualified Code(s): R40.1 - Stupor Breast cancer Qualifiers: Breast location: unspecified site of breast Estrogen receptor status: unspecified Patient sex: female Laterality: bilateral Qualified Code(s): C50.911 - Malignant neoplasm of unspecified site of right female breast; C50.912 - Malignant neoplasm of unspecified site of left female breast; C50.912 - Malignant neoplasm of unspecified site of left female breast; C50.912 - Malignant neoplasm of unspecified site of left female breast; C50.912 - Malignant neoplasm of unspecified site of left female breast Condition: Fair
[2018-02-09 10:44] LABS: PLATELET COUNT 179 10^3/uL (150-400)
--- NOTE | 2018-02-09 10:47 | CPEKG ---
Heart Rate: 39 RR Interval: 1538 P-R Interval: 156 QRSD Interval: 94 QT Interval: 528 QTC Interval: 426 P [place]: 29 QRS [place]: -42 T Wave [place]: -11 EKG Severity - ABNORMAL ECG - EKG Impression: SINUS BRADYCARDIA EKG Impression: LEFT ANTERIOR FASCICULAR BLOCK EKG Impression: LEFT VENTRICULAR HYPERTROPHY EKG Impression: More bradycardic than previous Electronically Signed By: Solomon Brito 09-Feb-2018 10:47:22
[2018-02-09 11:32] LABS: PROTIME(PATIENT) 13.4 SEC (12.0-15.0)
[2018-02-09] MEDS ORDERED: NS 2,100 ML IV ONE (11:35)
[2018-02-09] MEDS ORDERED: GADOBUTROL 10 ML VIAL IVP ONE (14:43)
[2018-02-09] MEDS ORDERED: ACETAMINOPHEN 325 MG TAB PO PRN (15:11)
[2018-02-09] MEDS ORDERED: ONDANSETRON 4 MG/2 ML VIAL IVP PRN (15:11)
[2018-02-09] MEDS ORDERED: ONDANSETRON DISINTEGRATING 4 MG TAB PO PRN (15:11)
[2018-02-09] MEDS ORDERED: hydrALAZINE 10 MG TAB PO PRN (15:24)
[2018-02-09] MEDS ORDERED: ATROPINE SULFATE 1 MG/10 ML SYR IVP PRN (15:25)
--- NOTE | 2018-02-09 16:17 | GHP ---
[f rep st] HISTORY AND PHYSICAL DATE OF ADMISSION: 02/09/2018 CHIEF COMPLAINT: Altered mental status. HISTORY OF PRESENT ILLNESS: The patient is a 72-year-old female with a history of hypertension, hyperlipidemia, bradycardia, and recently diagnosed breast cancer, who presents to the emergency department with confusion. Most of the history is obtained from her son and [id number]. They have recently moved in with her since she was diagnosed with breast cancer in July 2017. Over the past couple of days, she has become more confused and dazed. She is intermittently unresponsive to their questions. She seems to forget basic instructions they have given her. This morning, she appeared so acutely confused they brought her to the emergency department for evaluation. She specifically denied headaches or vision changes. She has had no focal weakness. She has had no fevers or chills. There is no history of nausea, vomiting, abdominal pain, or changes in her bowel or bladder habits. With respect to her breast cancer, she was diagnosed in July 2017. She underwent bilateral mastectomy in November 2017. She just recently started chemotherapy with letrozole and Ibrance and is followed by Dr. Marcelo Kimble. She is also undergoing radiation therapy for bony metastases specifically in her pelvis. She underwent a PET scan recently, which showed extensive bony metastases. Also noted are 2 lung nodules. She is currently receiving dexamethasone 4 mg twice daily. In the emergency department, her lactic acid was elevated, though there is no focal source of infection. She is afebrile and has a normal white blood cell count. Thus, she does not meet septic criteria. An MRI with and without contrast is ordered to evaluate for brain metastases, and she is admitted to the hospital for further management. PAST MEDICAL HISTORY: 1. Stage IV breast cancer, diagnosed July 2017. 2. Hypertension. She recently stopped her antihypertensives. 3. Hyperlipidemia. 4. Vitamin D deficiency. 5. Bradycardia. She has been offered a pacemaker but has previously declined this. 6. Osteopenia. PAST SURGICAL HISTORY: , cardiac catheterization, carpal tunnel release, colon polypectomy, inguinal hernia repair, bilateral mastectomy, tonsillectomy. MEDICATIONS: Please see [email or web address] for a complete outpatient medication list. ALLERGIES: She has no known drug allergies. FAMILY HISTORY: The patient's recently of a heart attack. She is currently living independently with her son and [id number]. She denies alcohol or tobacco use. REVIEW OF SYSTEMS: A 10-point review of systems was performed and was negative except as per HPI. OBJECTIVE: VITAL SIGNS: Temperature is 36.5, blood pressure 133/67, heart rate 47, respiratory rate 18. She is 95% on room air. GENERAL: Patient is awake, alert, oriented to person and year. She is not able to reply to digits forward. HEENT: Head is atraumatic, normocephalic. Pupils equal, round, reactive to light. Extraocular muscles are intact. Oropharynx is clear. Mucous membranes are moist. NECK: Supple. There is no JVD. HEART: Bradycardic rate without murmur. LUNGS: Clear to auscultation bilaterally. ABDOMEN: Soft, nondistended, nontender. Normoactive bowel sounds. EXTREMITIES : Without cyanosis, clubbing, or edema. She moves all 4 extremities. Strength is 5/5 in upper and lower extremities bilaterally. No pronator drift is negative. NEUROLOGIC: There is no facial asymmetry. LABORATORY DATA: CBC reveals a white blood cell count of 5.5, hemoglobin 11.5, hematocrit 36, platelets normal 179. INR is 1. Lactic acid 2.4. Repeat lactate 2.1. Chemistry panel is remarkable for potassium 5.1, CO2 of 19, BUN 29 , glucose 107, calcium 8.1, total bilirubin 1.7, unconjugated bilirubin 1.3, alkaline phosphatase 465. Urinalysis shows 1+ blood, 1+ leukocytes, 15-[address] without contrast performed in the emergency department shows mild cerebrovascular atherosclerosis. Otherwise normal CT of the brain. Chest x-ray , personally reviewed and interpreted, shows trace pleural effusions with possibly increased interstitial markings. EKG shows sinus bradycardia with a rate of 39 and T-wave inversions in her anterior leads, as well as her inferior leads. ASSESSMENT AND PLAN: The patient is a 72-year-old female with a history of stage IV breast cancer, who presents to the hospital with altered mental status. # Acute encephalopathy. The immediate concern was for brain mets. Brain MRI shows some small mets, but unlikely significant enough to cause this presentation. Also considered meningeal carcinomatosis, but no obvious leptomeningeal enhancement on MRI. I will defer LP to oncology, Dr. Gallegos is consulted. Also consider infectious etiology though no fevers or leukocytosis. UA minimally abnormal and pt denies symptoms. Will give Ceftriaxone tonight for possibility of UTI, d/c if urine culture negative. In addition, EEG ordered and neurology consult requested for the morning. # Stage IV breast cancer, status post bilateral mastectomy, November 2017. She recently started chemotherapy and radiation as above. I discussed the case with Dr. Mariam Gallegos. Letrozole is held, continue Ibrance per ID. # Bradycardia. She has been offered a pacemaker in the past and has declined. She underwent cardiac catheterization, December 06, which was negative for any flow-limiting coronary disease. Discussed goals of care with her family. She is do not resuscitate. It's possible she is having waxing and waning mental status related to bradycardia and pacemaker may be warranted. However, on my recent visit she is not mentating well and HR is 70's, thus I doubt this is all explained by bradycardia. PRN Atropine. Pt does ultimately agree to external pacer pads if warranted, acknowledging this may lead to placement of a pacemaker. # Elevated lactate. I do not think this represents sepsis. Repeat lactate is normal. # Hyperbilirubinemia. This is new and mild. She has no right upper quadrant abdominal pain to suggest an obstructive biliary process, but will check RUQ u/ s. # Hypertension. She has recently stopped her losartan/hydrochlorothiazide due to hypotension. We will continue to hold this and provide p.r.n. hydralazine as needed. # Code status. I had a lengthy discussion about code status with the patient' s son, who is her power of defense attorney. She has an advance directive and wishes to be do not resuscitate. This will be honored. He also entertained the possibility of palliative care and hospice, as he understands her disease is not curable. # Deep venous thrombosis prophylaxis. Patient is high risk. Lovenox. # Disposition. Patient admitted to inpatient status. I anticipate greater than 48 hours hospitalization for ongoing evaluation of her acute encephalopathy and stage IV breast cancer. /[id number]/MODL MTDD
--- NOTE | 2018-02-09 16:38 | PDMN ---
Medical Necessity Medical necessity: MCG: [facility] Neurology- acute encephalopathy, Bradycardia, elevated lactate, pt with stage IV Br. Ca, currently on chemo, concern for brain mets., anticipate > 2 midnights ongoing med nec care,
--- NOTE | 2018-02-09 18:28 | GCON ---
[f rep st] CONSULTATION INITIAL ONCOLOGY VISIT. PRIMARY ONCOLOGIST: Dr. Marcelo Kimble. REASON FOR VISIT: E and M for metastatic breast cancer. HISTORY OF PRESENT ILLNESS: The patient is ef 72-year-old woman who is diagnosed with breast cancer. She actually was initially diagnosed in July with a spiculated mass seen on mammogram and was p alpable. It on ultrasound was 2.8 cm with an abnormal appearing lymph node. She had a biopsy in lat e July, which confirmed a breast cancer, ductal carcinoma, grade 2, borderline Ki-67, HER2 negati ve in ER/MD positive. The attempted biopsy of right axilla node was negative for malignancy. She un derwent bilateral mastectomy in November. Apparently, there was delay because of cardiac clearance as s he has chronic bradycardia. Left breast was clear. The right breast showed a 4 cm infiltrating duct al carcinoma involving the skin, but no ulceration and multiple lymph nodes were noted with extracaps ular invasion. There were 15 out of 17 lymph nodes positive. Because of the advanced stage, Dr. Jose Antonio lorenz ordered a PET-CT scan, even though she was not having a lot of systemic disease. Unfortunately, t he PET CT scan showed widespread metastatic disease in the skeleton, pulmonary, neck adenopathy, poss ible left adrenal. He reviewed this and recommend going on letrozole, plus Ibrance, which she starte d about a week or so ago. She was having some increasing pain related to some of the bony metastatic disease, so she was referred to radiation and started on dexamethasone for anti-inflammatory. She i s about to start this week. She has been tolerating the oral therapy well without diarrhea or fever. She presented to the radiation today, was having episodes of alertness, then with less responsiveness , but appears to be awake. Her son noticed maybe some tremors last night, but no tremors or involunt koffi movements today. She seems somewhat distant at times and forgetful. She was sent from Radiation to the ER where they evaluated her. The MRI of her brain showed some small METS, but no stroke or s ignificant edema or bleed. She has been somewhat bradycardic ranging from about 30 to 60 beats per m inute. Difficult to tell if the symptoms worsen when her heart rate goes down. While in the room wi th her, at times, she would ask questions and asks what was going on, than other times, when she was asked direct questions, she would stare at me, but not respond. Most of the history is obtained from the chart, as well from her family. ALLERGIES: She has no known drug allergies. HOME MEDICATIONS: Included palbociclib 150 mg daily, letrozole 2.5 mg daily, dexamethasone 4 mg twic e daily, azithromycin recently for cough, Compazine as needed for nausea, losartan with hydrochloroth iazide. PAST MEDICAL HISTORY: Chronic illnesses, include hypertension, breast cancer as per HPI, dyslipidemi a, vitamin D deficiency, bradycardia for which she has been offered a pacemaker in the past, but she has declined, and osteopenia. PAST SURGICAL HISTORY: Includes bilateral mastectomies, tonsillectomy, carpal tunnel, , car diac catheterization, colon polypectomy, and right inguinal hernia repair. FAMILY HISTORY: Negative for malignancy. SOCIAL HISTORY: She is . She lives with her son. GYNECOLOGIC HISTORY: She has 2 children. She took estrogen replacement for about 3 years, so still has hot flashes. REVIEW OF SYSTEMS: Difficult to obtain from the patient herself. Obtained from family. Besides dis cussed in HPI, otherwise negative. PHYSICAL EXAMINATION: VITAL SIGNS: Temperature 36.6 pulse ranges as stated before 30-60. Blood pre ssure is 153/78. GENERAL: She appears awake, but will not answer questions. HEENT: Unremarkable. LUNGS: Clear. CARDIAC: Regular, a little bradycardic with a 2/6 systolic murmur. ABDOMEN: Soft, nontender. EXTREMITIES: She denied pain. NEUROLOGIC: Difficult to assess. LABORATORY/IMAGING: Potassium is up a little bit. BUN and creatinine is 29 and 0.7. Calcium is nor mal. Total bilirubin 1.7, which seems to be stable for her. Alkaline phosphatase is elevated at 465 , consistent with a bone METS. White count 5500 with ANC of 5300, hemoglobin 11.5, platelet count 17 9,000. Coags are unremarkable. UA shows 1+ esterase. MRI, which I reviewed, showed small, 2 of them in the infratentorial, 1 right cerebellum at 7 x 12 x 9 mm. The other is in the upper left graham at 3 x 4 x 3 mm. There is a small supratentorial lesion i n the right frontal deep white matter 2 x 3 x 2 mm, and she has multiple bone lesions. There is no e vidence of stroke or leptomeningeal enhancement. IMPRESSION: 1. Acute neurological changes. 2. Metastatic breast cancer with lung, bone, and now brain metastases. 3. Bradycardia. Unclear at this time what is the cause of her symptoms. Although she has lesions in her brain consis tent with metastases, they are very small and those in the graham and cerebellar should cause issues li ke this. I think it is unlikely to be related to the symptoms, but I cannot entirely rule it out. I t is possible she is having subclinical seizures, so an EEG may be beneficial. In addition, she has bradycardia, but this has been a long-standing problem. She has never had this problem before. I kern ve spoken with the hospitalist who will ask Cardiology to evaluate. She has not been interested in a pacemaker, but it turns out that bradycardia is the cause of her mental status change, I think she m ay be more open to having that done to maintain her mental status. I have not seen this side effect from [facility], it is not in listed, so I think it is unlikely, but I recommend holding for now, but ca n continue the letrozole. We will also continue the dexamethasone. I do not believe it needs to be increased since there is not much cerebral edema. This is being used as anti-inflammatory for her julieth ne pain. If still cannot identify specific cause, then perhaps a consultation with Neurology may be beneficial and even considering a lumbar puncture. There was no sign of meningeal enhancement, but w ould need to do this to rule out either infection or more worrisome a malignant meningeal involvement . We will follow along with you in the hospital. /[id number]/MODL
[2018-02-09] MEDS ORDERED: Palbociclib [Ibrance] 125 MG PO SCH (21:00)
[2018-02-09] MEDS: CALCIUM CARBONATE 500 MG CHEWABLE TAB PO PRN (21:00)
[2018-02-09] MEDS: DEXAMETHASONE 4 MG TAB PO SCH (22:30)
--- NOTE | 2018-02-10 08:27 | GCON ---
[f rep st] CONSULTATION NEUROLOGIC CONSULTATION REFERRING PHYSICIAN: Destiney Ruiz MD HISTORY: The patient is a 72-year-old woman whom I am asked to see for a chief complaint of an alter ed mental state. This history begins about 12 hours or so prior to admission. Previous diagnosis is of newly diagnosed breast cancer. This was seen in July. She had a bilateral mastectomy in Nov. She had 15 out of 17 positive lymph nodes. She had a PET scan showing widespread metastatic dis ease. This included skeletal, pulmonary, adrenal, and neck. She was put on letrozole and Ibrance, o f which she has been on about 8 days. For pain, she had recently started some dexamethasone . Two n ights ago, her son said she tended to be a little bit tremulous in her hands and was not quite her no rmal self. She started to be a little less interactive. She went to radiation for her hip, and it w as there that she developed hypotension and also became poorly responsive, that is basically had a fa r-off stare in her appearance much in the last 12 to 24 hours. There are very occasional periods of clarity where she will speak more regularly, but otherwise, there is a very prolonged latency to her responses, even though she would generally seem to partially understand what is being asked. She has never had a history of seizure or stroke. She had a brain MRI yesterday which shows some metastases in the brain. There is not mass effect. More specifically, these are lesions that are seen infrate ntorial and supratentorial. In the right cerebellum, there is a 7 x 12 x 9 mm lesion, and also one i n the left graham of 3 x 4 x 3 mm. There is an enhancing supratentorial lesion in the posterior right frontal deep white matter of 2 x 3 x 2 mm. There is no evidence of stroke or hemorrhage. Overnight, the patient has remained about the same. Family agrees that they are seeing the same basi c staring, although perhaps slightly better in terms of the vague look she has on her face, but still very prolonged latencies to answer any questions. PAST MEDICAL HISTORY: Notable for hypertension, hyperlipidemia, vitamin D deficiency, some bradycard ia, for which a pacemaker has previously been suggested, but declined, osteopenia, carpal tunnel in t he past, and inguinal hernia repair. FAMILY HISTORY: with a heart attack. SOCIAL HISTORY: She is living with her son and [id number]. No alcohol or tobacco abuse. She h as a strong mathematics background. ALLERGIES: No known drug allergies. MEDICATIONS: Her current medications in the hospital are Rocephin, dexamethasone, hydralazine, and l etrozole. The Ibrance is currently being held by the recommendation of Dr. Gallegos. REVIEW OF SYSTEMS: No recent fever, chills, nausea, vomiting, or diarrhea. No chest pain, palpitati ons, or shortness of breath. PHYSICAL EXAMINATION: VITAL SIGNS: The blood pressure is 160/63, pulse of 45, respirations 15, temp erature 36.9. GENERAL: She is well developed, lying in the bed, in no acute distress. NECK: Suppl e, with no bruits or masses. CARDIAC: Regular rate and rhythm. No murmur. NEUROLOGIC: She is hunter [place], but has poor and unsustained attention. She does not have any spontaneous speech, but when spoke n to, after a prolonged latency of 15 to 30 seconds and sometimes more, she will answer several of th e questions accurately. She can tell me her name and her address. She thinks she is in the city of [place]. She can tell me where she was born in [place]. Following commands. Follows a similar pa ttern where there is a prolonged latency, but generally gets the idea and does follow the basic comma nds. She cannot carry on a detailed conversation at all, however. I do not see any nystagmus, repet itive motor movements, or anything more specific to suggest active seizures. The strength is inconsi stent in testing, but does not seem to be affected. Sensation is preserved. Reflexes are 1+. In reviewing the laboratory data, CBC is unremarkable. Chemistry showed a little bit of an elevated potassium at 5.1 and alkaline phosphatase 465. Urinalysis had 1-3 white cells. The brain imaging as outlined above. Abdominal ultrasound was also obtained yesterday, and that report shows a small rig ht pleural effusion and hepatic parenchymal cysts, but nothing else more specific. IMPRESSION: Total unit time of 70 minutes. The patient has a recent diagnosis of metastatic breast cancer and now has evidence of cerebral metastases and subacute encephalopathy, characterized by decr eased spontaneous speech, prolonged latency to answer questions, and variable attention. No focal fi ndings are present on exam. Brain metastases or a new finding. There is not specific evidence of ca rcinomatous meningitis from the contrast MRI. Microscopic metastases or CSF infiltration may very we ll be present. Differential considerations for her behavioral change would include medication side e ffects, but neither of these chemotherapy drugs specifically have this adverse effect described from what I read so far. We do not see evidence of infection. Nonconvulsive seizure phenomena might prod uce this clinical picture, and an EEG will be obtained. If obtaining spinal fluid would lead to a sp ecific change in the management strategies, then that can be done, and the family wants to discuss th at with Oncology, but would certainly want to avoid the procedure if not necessary. There would also be the question of whether it would be appropriate to do whole-brain radiation given the current sce nario of the altered mental state. All of these are complex questions to continue to contemplate sridhar escobar Family, Oncology, and the entire team involved in her care. I will request the EEG and follow up o n further recommendations after that. /[id number]/MODL
[2018-02-10] MEDS ORDERED: ENOXAPARIN 40 MG/0.4 ML SYR SC SCH (09:00)
[2018-02-10] MEDS: DEXAMETHASONE 4 MG TAB PO SCH ×2 (09:39→20:25)
[2018-02-10] MEDS: LETROZOLE 2.5 MG TAB PO SCH (10:50)
--- NOTE | 2018-02-10 13:26 | ASMTCASEMG ---
Living Arrangements What is your living Answers: With Child(sage) arrangement? Who do you live with? Type Of Residence What kind of residence do Answers: House you live in? Discharge Plan Comments Coordination Status Comments Notes: Pts case discussed in morning rounds. Pt is a 72 y/o female admitted for bradycardia, altered mental status and breast cancer. Pts son and daughter in law lives w/ her. PT saw pt and is recommending home with outpatient therapy. CM met w/ pt and daughter in law for dispo planning. Pt and daughter in law doesn't feel like any additional services are needed at this time. CM to follow. Plan: Independent Date Signed: 02/10/2018 01:25 PM Electronically Signed By:CHIRAG Melchor
[2018-02-10] MEDS: ENOXAPARIN 40 MG/0.4 ML SYR SC SCH (14:25)
--- NOTE | 2018-02-10 14:49 | HOSPPROG ---
Hospitalist Progress Note Assessment/Plan: Acute encephalopathy - Differential includes brain mets, meningeal carcinomatosis, seizure activity, or infectious. Brain mets seem too small to cause this degree of encephalopathy. Doubt infectious, but will continue ceftriaxone while awaiting UCx noting slightly abnormal UA though absence of symptoms. -EEG today, discussed with neurology -possible LP tomorrow to evaluate for meningeal carcinomatosis (no enhancement on MRI) if EEG unrevealing, discussed with oncology Stage IV breast cancer - mets to bone, lung, brain. Appreciate oncology assistance -cont chemo per onc -cont dex Bradycardia - HR 30's on admission, improved now. No hypotension. Previously had refused pacemaker. 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 Per RN, she has periods of lucency when she is quite clear with her speech. No pain or complaints reported. Objective: Vital Signs Temp Pulse Resp BP Pulse Ox 36.4 C 59 L 18 123/61 H 94 02/10/18 11:23 02/10/18 11:23 02/10/18 11:23 02/10/18 11:23 02/10/18 11:23 02/09/18 02/10/18 02/11/18 05:59 05:59 05:59 Intake Total 2820 Output Total 300 Balance 2520 PT 13.4 SEC (12.0-15.0) 02/09/18 11:15 INR 1.00 (0.83-1.16) 02/09/18 11:15 - Physical Exam Constitutional: no apparent distress Eyes: PERRL Ears, Nose, Mouth, Throat: moist mucous membranes Cardiovascular: regular rate and rhythym Respiratory: no respiratory distress Gastrointestinal: normoactive bowel sounds, soft, non-tender abdomen Skin: warm Musculoskeletal: generalized weakness Psychiatric: encephalopathic ICD10 Worksheet Patient Problems: Problems Problem Status Onset Altered mental status Acute Bradycardia Acute Breast cancer Acute
--- NOTE | 2018-02-10 14:50 | SOAPPROG ---
SOAP Progress Note Assessment/Plan: E&M breast cancer * Altered neuro status: still with episodes where she is awake but not responsive. appreciate neuro input. EEG being performed. If negative and still ongoing, would do LP and inject MTX 12 mg into spinal fluid. Cannot r/o esoteric drug reaction to ibrance so will continue to hold but continue letrozole. * Met. ER+ breast cancer: on letrozole and Ibrance and getting palliative xrt. Has lung, bone, and brain mets. Continue dex. XRT on hold until neuro issue clarified. Continue letrozole. Subjective: Little more interactive this morning but still significantly declined from baseline. Denies headache. Ate breakfast. Son with patient. Objective: Vital Signs Temp Pulse Resp BP Pulse Ox 36.4 C 59 L 18 123/61 H 94 02/10/18 11:23 02/10/18 11:23 02/10/18 11:23 02/10/18 11:23 02/10/18 11:23 02/09/18 02/10/18 02/11/18 05:59 05:59 05:59 Intake Total 2820 Output Total 300 Balance 2520 PT 13.4 SEC (12.0-15.0) 02/09/18 11:15 INR 1.00 (0.83-1.16) 02/09/18 11:15 - Time Spent With Patient Time Spent With Patient: 40 min with patient and son Physical Exam - Physical Exam General Appearance: no apparent distress Respiratory: lungs clear Cardiac/Chest: regular rate, rhythm Abdomen: non-tender, soft Neuro/Psych: aphasia (but when talks she is ) ICD10 Worksheet Patient Problems: Problems Problem Status Onset Altered mental status Acute Bradycardia Acute Breast cancer Acute
--- NOTE | 2018-02-10 15:45 | GCON ---
[f rep st] CONSULTATION CARDIOLOGY CONSULT DATE OF CONSULTATION: 02/10/2018 REFERRING PHYSICIAN: Destiney Ruiz MD PRIMARY ONCOLOGIST: Marcelo Kimble MD PRIMARY SHEET TESTER: Ky Don MD PRIMARY CARE PHYSICIAN: Antoinette Sharma MD CHIEF COMPLAINT: Bradycardia. HISTORY OF PRESENT ILLNESS: We were asked by Dr. Ruiz to visit with the patient. The patient is a 72-year-old female with metastatic breast cancer. She also has hypertension and past history of br adycardia. Previously, she has seen Dr. Don, and several months ago, a pacemaker was being consider ed, but the patient declined at that time. Her breast cancer was diagnosed in July. She has had bilateral mastectomies and is now on Ibranc e and Femara. She does have brain metastases. Her son brought her to the ER yesterday for sudden onset of confusion and staring spells. She was in termittently bradycardic, sinus to the 30s, and there was concern that perhaps her bradycardia was co ntributing to her altered mental status. The history is difficult, as the patient is not able to form complete sentences and speaks very slowl y and does seem confused; however, she knows that she is in the hospital for cognitive changes. She states that sometimes she gets chest pressure, but the son states that she has not complained of that before. She does have stable exertional dyspnea. She has not fainted. She does not complain of pa lpitations. She has been seen also by Dr. Pratt, and an EEG is pending. Brain MRI does show metastases. REVIEW OF SYSTEMS: Unable to complete a detailed review of systems due to the patient's mental statu s. ALLERGIES: No known drug allergies. CODE STATUS: Do not resuscitate. PAST MEDICAL HISTORY: 1. Breast cancer. 2. Hypertension. 3. Dyslipidemia. 4. Osteopenia. 5. History of carpal tunnel and carpal tunnel surgery. 6. Status post inguinal hernia repair. 7. Status post bilateral mastectomy. OUTPATIENT MEDICATIONS: Dexamethasone, Femara, Ibrance. SOCIAL HISTORY: The patient does not smoke cigarettes. Her son is at the bedside. Her fairly recently. FAMILY HISTORY: Not applicable to the current case. PHYSICAL EXAM: VITAL SIGNS: Blood pressure 123/61. Heart rate has ranged from 39-59. Her son also has some data from the patient's Apple watch, which shows quite a range of heart rate variation from the 30s to the one teens and the very highest being 187. GENERAL: This is an ill-appearing older f emale. Her speech is slow, and she seems confused. HEENT: Mucous members are moist. Sclerae are m ildly jaundiced. Normocephalic, atraumatic. CARDIOVASCULAR: Regular rate and rhythm. A soft early systolic murmur left lower sternal border. No gallop or rub. LUNGS: Clear anteriorly and laterall y. ABDOMEN: Soft, nontender, nondistended. No obvious bruits, masses, or hepatosplenomegaly. EXTR EMITIES: Warm, well perfused without cyanosis, clubbing, or edema. LABORATORY DATA: White count 5.5, hematocrit 36, platelets are 179. INR is 1. Her venous lactate w as 2.4 upon admission, now 2.1. Sodium 136, potassium 4.7, chloride 105, bicarb 22, BUN 35, creatini ne 0.6, and glucose is 109, bilirubin is 1.8, AST 28, ALT 29, alkaline phosphatase 436. TSH is peggy l. Troponin negative. Urinalysis shows red cells, 1+ leukocyte esterase, 1+ blood. Urine culture i s no growth to date. Blood cultures: No growth to date. EKG reviewed by me shows sinus bradycardia with anterior T-wave inversions. Chest x-ray reviewed by me shows mild fluid overload. Cardiac catheterization in November of this year demonstrated normal coronary arteries and a normal left ventricular ejection fraction. ASSESSMENT AND PLAN: A 72-year-old female with metastatic breast cancer, past history of bradycardia that was not clearly symptomatic, hypertension. She now presents with acute change in mental status , and the question is whether bradycardia is contributing to this. 1. Bradycardia: She has periods of normal rhythm, during which she still seems confused, staring bl ankly, minimally responsive. Her blood pressure has been normal. I do not think that she requires p acemaker placement at this time. There is no clear indication for this. I do not think that her int ermittent bradycardia is contributing to her sudden onset of altered mental status, especially since she has previously had the bradycardia with normal mental status. It is possible that the steroids o r one of her two oncology medications may be contributing. She has brain metastasis. She is also ge tting an EEG. 2. Breast cancer: Per Oncology. 3. Hypertension: Currently fairly well controlled. Thank you for allowing us to participate in the patient's care. We will sign off, as there is no ind ication for pacemaker or other cardiac interventions at this time. Please call with questions or con cerns. /[id number]/MODL
--- NOTE | 2018-02-10 19:16 | CPEEG ---
[f rep st] ELECTROENCEPHALOGRAM EEG REPORT. DATE OF STUDY: HISTORY: The patient is here for evaluation of altered mental state. She has metastatic breast cancer including brain metastases and over the last 24 to 36 hours, has become less responsive with staring spells and very prolonged latency to answer questions, but no overt seizure activity. INDICATION: Evaluate for seizure and epileptiform activity. DESCRIPTION OF THE RECORD: This is a technically adequate study obtained in the hospital without sleep deprivation. The recording is characterized by background frequency of 6-7 hertz with some posterior predominance and frontal predominant theta slowing, as well as rare, frontal intermittent rhythmic delta activity. She falls asleep at about 13-14 minutes and during that timeframe, there is some fairly regular theta activity in the predominant frontal head region with small, sharp wave components. There was not any clinical change in the patient during this timeframe. I do not see any other focal changes. INTERPRETATION: This is an abnormal EEG due to the presence of generalized slowing consistent with a generalized and nonspecific encephalopathy. The frontal predominant slowing is also nonspecific. The relative period of theta activity in the frontal head region is nonspecific and not classic for nonconvulsive seizure. /[id number]/MODL MTDD
[2018-02-10] MEDS: CALCIUM CARBONATE 500 MG CHEWABLE TAB PO PRN (20:25)
[2018-02-11] MEDS: ENOXAPARIN 40 MG/0.4 ML SYR SC SCH (09:01)
[2018-02-11] MEDS: DEXAMETHASONE 4 MG TAB PO SCH ×2 (09:01→20:17)
[2018-02-11] MEDS: LETROZOLE 2.5 MG TAB PO SCH (09:01)
--- NOTE | 2018-02-11 09:15 | NEUROPROG ---
Assessment: Total unit time of 25 min. She is still encephalopathic and aphasic but no definite seizure seen by EEG and I am not ready to start empiric anticonvulsant therapy with the uncertainty. As oncology has stated, there could still be atypical drug reaction present. We will move forward with lumbar puncture to include paraneoplastic antibody testing on serum and CSF and also intrathecal methotrexate will be planned by Dr. Gallegos. All of this was reviewed with the family and they are in agreement. Subjective: The patient is reporting nothing specific because she is essentially non communicative. Family says she has had relative periods of clear speech but most the time does not interact in a very purposeful fashion or as a prolonged latency to answer questions. There have been times when she has had some tremulousness of her legs but no overt seizures. Her son says maybe the right corner of her mouth might slightly draw a little. Objective: Vital Signs Temp Pulse Resp BP Pulse Ox 36.5 C 56 L 16 146/74 H 94 02/11/18 08:56 02/11/18 08:56 02/11/18 08:56 02/11/18 08:56 02/11/18 08:56 Laboratory Results 02/10/18 12:35 02/10/18 02/11/18 02/12/18 05:59 05:59 05:59 Intake Total 2820 100 Output Total 300 Balance 2520 100 PT 13.4 SEC (12.0-15.0) 02/09/18 11:15 INR 1.00 (0.83-1.16) 02/09/18 11:15 The EEG did not show any seizure or epileptiform activity but nonspecific slowing as might be seen with encephalopathy. She was essentially lethargic or asleep during most of the recording. Right now she is awake but has poor attention and is not communicating with me except some fragmented words or sounds and is not specifically following my commands. Allergies/Adverse Reactions: No Known Allergies Allergy (Verified 02/09/18 10:49)
[2018-02-11 10:26] LABS: INR 1.06 (0.83-1.16)
[2018-02-11] MEDS ORDERED: METHOTREXATE SODIUM IT ONE (10:30)
[2018-02-11] MEDS ORDERED: NS IT ONE (10:30)
[2018-02-11] MEDS: HYDROCORTISONE 2.5% 30 GM CRTUBE TP SCH ×2 (11:51→20:19)
--- NOTE | 2018-02-11 11:52 | SOAPPROG ---
SOAP Progress Note Assessment/Plan: E&M breast cancer * Altered neuro status: still with episodes where she is awake but not responsive. appreciate neuro input. EEG abnormal but no seizure. Agree with LP and will set up MTX 12 mg into spinal fluid. Cannot r/o esoteric drug reaction to ibrance (29 hour half life) so will continue to hold (since 02/09) but continue letrozole. After procedure and recommended staying the night. If about the same, could go home with son and follow up with Dr. Kimble. * Met. ER+ breast cancer: was on letrozole and Ibrance and getting palliative xrt. Has lung, bone, and brain mets. Continue dex. XRT on hold until neuro issue clarified. Continue letrozole. Subjective: Patient in shower. About same. Spoke with son. Reviewed neurology note. Objective: Vital Signs Temp Pulse Resp BP Pulse Ox 36.5 C 56 L 16 146/74 H 94 02/11/18 08:56 02/11/18 08:56 02/11/18 08:56 02/11/18 08:56 02/11/18 08:56 Laboratory Results 02/10/18 12:35 02/10/18 02/11/18 02/12/18 05:59 05:59 05:59 Intake Total 2820 100 Output Total 300 Balance 2520 100 PT 14.0 SEC (12.0-15.0) 02/11/18 10:10 INR 1.06 (0.83-1.16) 02/11/18 10:10 Physical Exam - Physical Exam General Appearance: no apparent distress ICD10 Worksheet Patient Problems: Problems Problem Status Onset Altered mental status Acute Bradycardia Acute Breast cancer Acute
--- NOTE | 2018-02-11 11:58 | HOSPPROG ---
Hospitalist Progress Note Assessment/Plan: Acute encephalopathy - Differential includes brain mets, meningeal carcinomatosis, seizure activity, or infectious. Brain mets seem too small to cause this degree of encephalopathy. EEG abnormal, generalized slowing c/w non- specific encephalopathy, no e/o seizure activity. Discussed with neurology. Doubt infectious, s/p 3 days ceftriaxone and UCx unrevealing. -d/c ceftriaxone -LP today to evaluate for meningeal carcinomatosis, will also receive intra- thecal methotrexate per oncology Stage IV breast cancer - mets to bone, lung, brain. Appreciate oncology assistance -cont chemo, MTX per onc -cont dex Bradycardia - HR 30's on admission, improved now. No hypotension. Previously had refused pacemaker. 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 Offered palliative or HH support to family. Son and daughter in law planning to be caregivers. Subjective: Pt remains the same, mostly in a daze, intermittently lucid per family. No fevers/chills. Objective: Vital Signs Temp Pulse Resp BP Pulse Ox 36.5 C 56 L 16 146/74 H 94 02/11/18 08:56 02/11/18 08:56 02/11/18 08:56 02/11/18 08:56 02/11/18 08:56 Laboratory Results 02/10/18 12:35 02/10/18 02/11/18 02/12/18 05:59 05:59 05:59 Intake Total 2820 100 Output Total 300 Balance 2520 100 PT 14.0 SEC (12.0-15.0) 02/11/18 10:10 INR 1.06 (0.83-1.16) 02/11/18 10:10 - Physical Exam Constitutional: no apparent distress Eyes: PERRL Ears, Nose, Mouth, Throat: moist mucous membranes Cardiovascular: regular rate and rhythym Respiratory: no respiratory distress, clear to auscultation Gastrointestinal: normoactive bowel sounds, soft, non-tender abdomen Skin: warm Musculoskeletal: generalized weakness Psychiatric: encephalopathic ICD10 Worksheet Patient Problems: Problems Problem Status Onset Altered mental status Acute Bradycardia Acute Breast cancer Acute
[2018-02-11] MEDS ORDERED: LIDOCAINE 1% 300 MG/30 ML SDV ONE (12:47)
[2018-02-11] MEDS ORDERED: IOPAMIDOL (ISOVUE-M 200) 20 ML VIAL ONE (13:40)
--- NOTE | 2018-02-11 14:09 | PDRADPN ---
Radiology Procedure Note Date of Procedure: 02/11/18 Radiologist: Melvin Watts Anesthesia: Local (Specify) Pre-op Diagnosis: metastatic Brca Post-op Diagnosis: same Indication: dx/tx Procedure: fluoro guided lumbar puncture with IT methotrexate infusion Finding(s): dural puncture at L4/5. clear CSF collected. 3mL Isovue 200M injected to show normal lumbar myelogram. 12mg methotrexate in 3mL volume subsequently injected. Inf/Abcess present in the surg proc area at time of surgery?: No Complications: None Specimen(s): Four vial containing 3mL clear CSF submitted to lab
[2018-02-12] MEDS: HYDROCORTISONE 2.5% 30 GM CRTUBE TP SCH (07:17)
[2018-02-12 07:43] VITALS: BP 134/72
[2018-02-12] MEDS: DEXAMETHASONE 4 MG TAB PO SCH (08:38)
[2018-02-12] MEDS: LETROZOLE 2.5 MG TAB PO SCH (08:38)
--- NOTE | 2018-02-12 09:20 | NEUROPROG ---
Assessment: Total unit time of 25 min. She is still encephalopathic and aphasic but no definite seizure seen by EEG and I am not ready to start empiric anticonvulsant therapy with the uncertainty. As oncology has stated, there could still be atypical drug reaction present. We will move forward with lumbar puncture to include paraneoplastic antibody testing on serum and CSF and also intrathecal methotrexate will be planned by Dr. Gallegos. All of this was reviewed with the family and they are in agreement. 02/12/18: Total unit time 15 minutes. Patient with slowly improving encephalopathy of unknown cause. CSF suspicious for malignancy but nonspecific and cytology is pending. Receive intrathecal MTX yesterday. Follow up with Oncology and neurology as needed. Subjective: patient is feeling well with no headache. She is not expressing any complaints. Family says she is definitely speaking better much of the time Objective: Vital Signs Temp Pulse Resp BP Pulse Ox 36.6 C 52 L 19 134/72 H 96 02/12/18 07:40 02/12/18 07:40 02/12/18 07:40 02/12/18 07:40 02/12/18 07:40 Microbiology 02/11/18 13:54 Gram Stain - Final Cerebral Spinal Fluid Laboratory Results 02/11/18 11:23 02/10/18 12:35 02/11/18 02/12/18 02/13/18 05:59 05:59 05:59 Intake Total 100 125 Balance 100 125 PT 14.0 SEC (12.0-15.0) 02/11/18 10:10 INR 1.06 (0.83-1.16) 02/11/18 10:10 CSF shows 12 WBCs and elevated protein with cytology pending Walking in tor[place] with family and still prolonged latency to questions but a bit better Allergies/Adverse Reactions: No Known Allergies Allergy (Verified 02/09/18 10:49)
--- NOTE | 2018-02-12 10:17 | ASMTCMCOM ---
CM Note CM Note Notes: Dc ordered received. Anticipate dc home with support of pt's son & daughter in law. Pt to attend outpatient physical therapy services she has in place. No other needs at this time. Date Signed: 02/12/2018 10:16 AM Electronically Signed By:Sheron Tay RN
--- NOTE | 2018-02-12 11:34 | ASDISCHSUM ---
Discharge Information Plan Status:Home with No Needs Medically Cleared to Leave: Discharge Date:02/12/2018 11:00 AM CM D/C Disposition:Home, Routine, Self-Care ADT D/C Disposition:Home, Routine, Self-Care Projected Discharge Date:02/12/2018 11:00 AM Transportation at D/C:Family Discharge Delay Reason: Follow-Up Date:02/12/2018 11:00 AM Discharge Slot: Final Diagnosis: Placement Information Patient Contact Information Contact Name:XAVIER Relationship:Gabriel Address: City: [facility] Phone: [facility] Code: Email: Financial Information Financial Class:Medicare Advantage Plans Primary Plan Desc:[facility]AR[facility] MEDICARE Primary Plan Number:[id number] Secondary Plan Desc: Secondary Plan Number: Assessment Information LACE LACE Length of stay for Answers: 4-6 days current admission Acuity / Level of Answers: Yes Care: Did the patient have an inpatient admission? Comorbidities - select Answers: Any tumor (including all that apply lymphoma or leukemia) Coronary Artery Disease # of Emergency department Answers: 1-2 visits in the last 6 months Score: 12 Date Signed: 02/12/2018 11:33 AM Electronically Signed By:Sheron Tay RN [facility] Initial CM Assessment Living Arrangements What is your living Answers: With Child(sage) arrangement? Who do you live with? Type Of Residence What kind of residence do Answers: House you live in? Discharge Plan Comments Coordination Status Comments Notes: Pts case discussed in morning rounds. Pt is a 72 y/o female admitted for bradycardia, altered mental status and breast cancer. Pts son and daughter in law lives w/ her. PT saw pt and is recommending home with outpatient therapy. CM met w/ pt and daughter in law for dispo planning. Pt and daughter in law doesn't feel like any additional services are needed at this time. CM to follow. Plan: Independent Date Signed: 02/10/2018 01:25 PM Electronically Signed By:CHIRAG Melchor [facility] Progress Note CM Note CM Note Notes: Dc ordered received. Anticipate dc home with support of pt's son & daughter in law. Pt to attend outpatient physical therapy services she has in place. No other needs at this time. Date Signed: 02/12/2018 10:16 AM Electronically Signed By:Sheron Tay RN Intervention Information
--- NOTE | 2018-02-12 11:39 | GDS ---
[f rep st] DISCHARGE SUMMARY DISCHARGE DIAGNOSES: 1. Acute encephalopathy. 2. Stage IV breast cancer. 3. Bradycardia. 4. Hypertension. 5. Hyperbilirubinemia. 6. 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 CONSULTANTS: 1. Dr. Mariam Gallegos, oncology. 2. Dr. Bird Pratt, neurology. 3. Dr. Yenifer Gale, cardiology. IMAGING STUDIES/PROCEDURES: 1. Head CT, February 09, 2018, showed mild cerebrovascular atherosclerosis. No evidence of acute infarc t or hemorrhage. 2. Brain MRI, February 09, 2018, showed early supra and infratentorial metastatic disease, as well as os seous metastatic disease. 3. Right upper quadrant abdominal ultrasound, February 09, 2018, showed scattered hepatic parenchymal cy sts. No evidence of hepatobiliary obstruction or solid hepatic lesions. A small right pleural effus ion was noted. 4. Electroencephalogram, February 10, 2018, was abnormal with generalized slowing, consistent with nonsp ecific encephalopathy, but no classic signs of nonconvulsive seizure. 5. Lumbar puncture, February 11, 2018. HISTORY: For details, please see the history and physical dated February 09, 2018. In brief, the chana pisano is a 72-year-old female with a history of stage IV breast cancer, who presented to the emergency de partment with hepatic encephalopathy. She was admitted to the hospital for further evaluation. HOSPITAL COURSE: The patient was admitted to the progressive care unit given her heart rate on arriv al was in the 30s. She had a known history of bradycardia and had been off her pacemaker in the past , which she declined. Cardiology consult was obtained. Her heart rate improved in the 40s to 50s. Consideration was given to if her mental status was related to her bradycardia, given her low heart r ate on arrival. However, her encephalopathic changes persisted even with heart rate in the 60s and 7 0s. Overall, her heart rate improved to the 50s to 60s on the day of discharge. There was no indica tion for pacemaker during this hospitalization. Regarding her encephalopathy, other considerations were infectious. She was given 3 days of ceftriax one given her abnormal urinalysis, though urine culture was negative, and antibiotics were discontinu ed. Workup for seizures ensued with the EEG results as above. She was not started on antiepileptics . 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 Her cerebrospinal f luid is abnormal with elevated glucose, elevated protein, and slightly elevated white blood cells of 12. She has had no headaches or neck stiffness to suggest aseptic meningitis. Further paraneoplasti c and other antibody workup were sent, and she will need to follow up with Neurology for results on t his. Cytology is also pending, and she will follow up with Dr. Kimble, her oncologist, to determine i f this is positive for malignancy. She did receive intrathecal methotrexate during her LP. On the d ay of discharge, her mentation is actually significantly improved. She is now conversive and ambulat ory. Her vital signs are stable. There was also some consideration to possible drug side effect from Ibrance, and this is held at [facility]. She will continue her letrozole and dexamethasone, but follow up with Dr. Kimble to determine whether or not to continue Ibrance. Her symptoms have improved over the past 48 hours since this has been held. DISPOSITION: Patient is discharged home in stable condition. Palliative care and home health servic es were offered to the family, though they have deferred these resources at this time. FOLLOWUP: 1. Dr. Marcelo Kimble, oncology, [facility]. 2. Dr. Bird Pratt, Neurology. DISCHARGE MEDICATIONS: Please see [facility] completed outpatient medication list. She will continue her letrozole 2.5 mg p.o. daily and dexamethasone 4 mg p.o. b.i.d. Ibrance is held until further dir ection by Dr. Kimble. /[id number]/MODL
== END 2018-02-12 11:00 | disposition home or self-care (01) | DRG 71 ==
LOC: EDBD → EDUNIT# → OBSVTOIN 12:01 → F2W 13:05
PROVIDERS: ADMIT Hospitalist; ATTEND Hospitalist
PROC: 3E0R305 Introduction of Other Antineoplastic into Spinal Canal, Percutaneous Approach (ICD-10-PCS; principal; 2018-02-11)
PROC: 009T3ZX Drainage of Spinal Meninges, Percutaneous Approach, Diagnostic (ICD-10-PCS; principal; 2018-02-11)
DX: G93.49 Other encephalopathy (principal); C79.51 Secondary malignant neoplasm of bone; C78.00 Secondary malignant neoplasm of unspecified lung; C79.89 Secondary malignant neoplasm of other specified sites; R00.1 Bradycardia, unspecified; C50.911 Malignant neoplasm of unspecified site of right female breast; E80.6 Other disorders of bilirubin metabolism; Z90.13 Acquired absence of bilateral breasts and nipples; Z66 Do not resuscitate
CPT/HCPCS: 83520-90; 84484-PO; 86256-90; 92523-GN; 97116-GP; 97161-GP; 97166-GO; A9585; G8978-GP-CI; G8979-GP-CI; G8980-GP-CI; J0461; J0696; J1650; J9250; Q9966

== ENCOUNTER → 2018-03-14 | Outpatient (CLI) | payer OTHER | LOC: FIMAGING 13:50 | PROVIDERS: ATTEND Nurse Practitioner | DX: R94.02 Abnormal brain scan (principal); C50.311 Malignant neoplasm of lower-inner quadrant of right female breast | CPT/HCPCS: 70553; A9585 ==

== ENCOUNTER → 2018-07-13 | Outpatient (CLI) | payer OTHER | LOC: FIMAGING 17:54 | PROVIDERS: ATTEND Internal Medicine Hematology & Oncology | DX: C50.311 Malignant neoplasm of lower-inner quadrant of right female breast (principal); C79.51 Secondary malignant neoplasm of bone; M21.372 Foot drop, left foot; M79.605 Pain in left leg; M51.36 Other intervertebral disc degeneration, lumbar region; M99.73 Connective tissue and disc stenosis of intervertebral foramina of lumbar region ==

== ENCOUNTER → 2018-11-22 | Outpatient (CLI) | payer OTHER | LOC: FIMAGING 13:29 | PROVIDERS: ATTEND Internal Medicine Hematology & Oncology | DX: C50.311 Malignant neoplasm of lower-inner quadrant of right female breast (principal); D69.6 Thrombocytopenia, unspecified ==